=== PATIENT | female | born 1960 | race Hispanic/Latino ===

== ENCOUNTER 2021-10-02 21:56 | Inpatient (IN) | payer SELFPAY ==
[2021-10-02] MEDS ORDERED: Haloperidol Lactate 5 MG/ML VIAL ONE (22:19)
[2021-10-02] MEDS ORDERED: Ibuprofen 800 MG TAB ONE (22:48)
[2021-10-02 23:51] LABS: CKMB 2.3 ng/mL (0-6.6)
[2021-10-03] MEDS ORDERED: Acetaminophen 650 MG Suppository PR PRN (00:51)
[2021-10-03] MEDS ORDERED: Ondansetron PF 4 MG/2 ML Vial IVP PRN (00:51)
[2021-10-03] MEDS ORDERED: Ondansetron ODT 4 MG TAB PO PRN ×2 (00:51→01:46)
[2021-10-03] MEDS ORDERED: Acetaminophen 325 MG TAB PO PRN (00:51)
[2021-10-03] MEDS ORDERED: Metoprolol Tartrate 5 MG/5 ML VIAL IVP PRN (01:44)
[2021-10-03] MEDS ORDERED: Lorazepam 2 MG/ML VIAL IM PRN (01:46)
[2021-10-03] MEDS ORDERED: Lorazepam 1 MG TAB PO PRN (01:46)
[2021-10-03 01:57] LABS: Actual Bicarbonate (HCO3a) 9.7 mEq/L (22-28); Analyzer IN Cardio ER; Base Excess (BEa) -14.6 mEq/L (-2.0 to +3.0); CO2 Tension 20.1 mmHg (35.0-45.0); Calcium, Ionized (arterial) 0.99 mmol/L (1.12-1.30); Carboxyhemoglobin (COHb) 0.3 gm% (0.0-3.0); Hemoglobin (Hb) 12.1 g/dL (12.0-16.0); O2 Tension (PaO2), arterial 82.9 mmHg (> 80.0); Potassium - ABG Lab 3.13 mmol/L (3.70-5.30)
[2021-10-03 01:58] LABS: ALV-art Gradient 177.175 mmHg (0-20); Puncture Site RRA
[2021-10-03] MEDS ORDERED: Thiamine HCl 200 MG/2 ML VIAL SLOW IVP SCH (02:00)
[2021-10-03] MEDS ORDERED: Electrolyte Replacement Protocol 1 EACH FS PRN (02:00)
[2021-10-03] MEDS ORDERED: Sodium Chloride 0.9% 1,000 ML IV SCH (02:00)
[2021-10-03] MEDS ORDERED: Lorazepam 1 MG TAB PO SCH (02:00)
[2021-10-03] MEDS: Sodium Chloride 0.9% 1,000 ML IV SCH ×3 (02:11→02:38)
[2021-10-03 02:22] LABS: Lactic Acid 11.1 mmol/L (0.5-2.2)
[2021-10-03] MEDS: Doxycycline 100 MG in Sodium Chloride 0.9% 100 ML IVPB SCH ×2 (02:31→15:23)
[2021-10-03] MEDS ORDERED: Dexmedetomidine In 0.9 % NaCl 100 ML IVPB SCH (02:45)
[2021-10-03 02:49] LABS: Anion Gap 20 mmol/L (10-20); BUN (Urea Nitrogen) 31 mg/dL (9.8-20.1); Calc. Creatinine Clearance 0 mL/min (70-130); Calcium 7.2 mg/dL (7.8-10.44); Chloride 108 mmol/L (98-107); Magnesium 2.2 mg/dL (1.6-2.6); Phosphorus 3.7 mg/dL (2.3-4.7); Potassium 3.2 mmol/L (3.5-5.1); Sodium 134 mmol/L (136-145)
[2021-10-03 02:52] LABS: Band 46 % (5-11); Differential Comment Plasma-cytoid Cells; Hemoglobin 11.9 g/dL (12.0-16.0); Lymphocytes 6 % (21-51); MDiff Complete? YES; Mean Corpuscular HGB CONC 32.4 g/dL (32.0-36.0); Mean Corpuscular Hemoglobin 34.7 pg (27.0-31.0); Mean Platelet Volume 9.5 fL (7.4-10.4); Metamyelocyte 12 % (0-0); Monocytes 6 % (0-10); Myelocyte 5 % (0-0); Neutrophil 23 % (42-75); Platelet Count 54 thou/uL (130-400); Platelet Morphology Comment Appears Decreased; RBC Distribution Width 14.3 % (11.5-14.5); Red Blood Cell (RBC) Count 3.44 mill/uL (4.20-5.40); Reflex for Review?? YES; Toxic Granulation SLIGHT; Vacuoles SLIGHT; White Blood Cell (WBC) Count 20.8 thou/uL (4.8-10.8)
[2021-10-03 02:55] LABS: Carbon Dioxide 9 mmol/L (22-29); Glucose 44 mg/dL (70-105)
[2021-10-03] MEDS ORDERED: Dextrose 50% Abboject 50 ML SYRINGE IVP PRN (03:00)
[2021-10-03] MEDS ORDERED: Dextrose 5% in Water 1,000 ML IV PRN ×2 (03:00→03:02)
[2021-10-03] MEDS ORDERED: Dextrose 50% Abboject 50 ML SYRINGE SLOW IVP PRN (03:02)
[2021-10-03 03:39] LABS: Actual Bicarbonate (HCO3a) 9.1 mEq/L (22-28); Base Excess (BEa) -18.3 mEq/L (-2.0 to +3.0); CO2 Tension 26.7 mmHg (35.0-45.0); Calcium, Ionized (arterial) 1.02 mmol/L (1.12-1.30); Carboxyhemoglobin (COHb) 0.3 gm% (0.0-3.0); Hemoglobin (Hb) 11.5 g/dL (12.0-16.0); O2 Tension (PaO2), arterial 93.4 mmHg (> 80.0)
[2021-10-03 03:45] LABS: ALV-art Gradient 101.385 mmHg (0-20); Puncture Site LRA; pH, Arterial 7.15 (7.35-7.45)
[2021-10-03] MEDS ORDERED: Vancomycin 1.5 GRAM/300 ML BAG 1.5 GM in Premix Bag 1 BAG IVPB SCH (03:45)
[2021-10-03] MEDS ORDERED: Sodium Bicarb 50 MEQ/50 ML VIAL ONE (03:49)
[2021-10-03] MEDS ORDERED: Metoprolol Tartrate 5 MG/5 ML VIAL ONE (03:56)
[2021-10-03] MEDS ORDERED: Sodium Bicarb 50 MEQ/50 ML Abboject 8.4% SYRINGE IVP SCH (04:00)
[2021-10-03] MEDS: Potassium Chloride 20 MEQ in Premix Bag 1 BAG IVPB SCH ×2 (04:02→05:30)
[2021-10-03] MEDS ORDERED: Metoprolol Tartrate 5 MG/5 ML VIAL IVP SCH (04:15)
[2021-10-03] MEDS ORDERED: Succinylcholine 200 MG/10 ml SYRINGE FS ONE (04:15)
[2021-10-03] MEDS: Sodium Bicarbonate 100 MEQ in Dextrose 5% in Water 1,000 ML IV SCH ×2 (04:25→16:50)
[2021-10-03] MEDS: Meropenem 500 MG in Sodium Chloride 0.9% 100 ML IVPB SCH ×2 (04:26→17:22)
[2021-10-03] MEDS ORDERED: DISCONTINUE PREVIOUS NARCOTIC PAIN MEDICATIONS AND BENZODIAZEPINES FS SCH (04:30)
[2021-10-03] MEDS ORDERED: Morphine 4 MG/ML VIAL SLOW IVP PRN (04:30)
[2021-10-03] MEDS ORDERED: Fentanyl BOLUS 250 ML IVPB PRN (04:30)
[2021-10-03] MEDS ORDERED: Propofol BOLUS 1,000 MG/100 ML VIAL IV PRN (04:30)
[2021-10-03] MEDS: fentaNYL Citrate-0.9 % NaCl/PF 100 ML IV SCH (04:45)
[2021-10-03] MEDS: Propofol 1,000 MG/100 ML VIAL IV PRN ×3 (04:56→22:12)
[2021-10-03] MEDS ORDERED: Sodium Bicarbonate 150 MEQ in Dextrose 5% in Water 1,000 ML IV SCH (05:00)
[2021-10-03 05:22] LABS: Actual Bicarbonate (HCO3a) 10.2 mEq/L (22-28); Base Excess (BEa) -17.6 mEq/L (-2.0 to +3.0); Calcium, Ionized (arterial) 1.01 mmol/L (1.12-1.30); Carboxyhemoglobin (COHb) 0.5 gm% (0.0-3.0); Hemoglobin (Hb) 12.2 g/dL (12.0-16.0); O2 Tension (PaO2), arterial 76.7 mmHg (> 80.0)
[2021-10-03] MEDS ORDERED: Norepinephrine 8 MG/0.9% NS 250 ML ONE (05:22)
[2021-10-03 05:23] LABS: pH, Arterial 7.14 (7.35-7.45)
[2021-10-03 05:24] LABS: Puncture Site LBA
[2021-10-03] MEDS ORDERED: Meropenem 1 GM in Sodium Chloride 0.9% 100 ML IVPB SCH (06:00)
[2021-10-03 08:10] LABS: Actual Bicarbonate (HCO3a) 12.3 mEq/L (22-28); Base Excess (BEa) -12.4 mEq/L (-2.0 to +3.0); Calcium, Ionized (arterial) 0.97 mmol/L (1.12-1.30); Carboxyhemoglobin (COHb) 0.8 gm% (0.0-3.0); Hemoglobin (Hb) 11.9 g/dL (12.0-16.0); O2 Tension (PaO2), arterial 94.7 mmHg (> 80.0); Potassium - ABG Lab 3.77 mmol/L (3.70-5.30); pH, Arterial 7.31 (7.35-7.45)
[2021-10-03 08:11] LABS: CO2 Tension 25.2 mmHg (35.0-45.0); Puncture Site RRA
[2021-10-03 08:34] LABS: Prothrombin Time 50.2 sec (12.0-14.7)
[2021-10-03 08:35] LABS: PTT 66.1 sec (22.9-36.1)
[2021-10-03 08:39] LABS: INR-International Normal Ratio 5.3
[2021-10-03 08:53] LABS: HBSAg Index 0.23 S/CO (0-0.99); HIV (1/2) Antibody/Antigen Non-Reactive (NonReactive); HIV 1/2 INDEX 0.08 S/CO (<1.00); Hep A IgM AB Non-Reactive (NonReactive); Hep A IgM S/CO 0.33 S/CO (0-0.79); Hep B Surf Ag Non-Reactive S/CO (NonReactive); Hep C IgG Ab Non-Reactive (NonReactive); Hep C Index 0.09 S/CO (0-0.79)
[2021-10-03] MEDS ORDERED: Albumin 5% 0 ML ONE (08:55)
[2021-10-03] MEDS ORDERED: Multivit, Therapeutic 1 TAB PO SCH (09:00)
[2021-10-03] MEDS ORDERED: Albumin 25% 0 ML ONE (09:00)
[2021-10-03] MEDS ORDERED: VANCOMYCIN 1.25 GM/250 ML BAG IVPB SCH (09:00)
[2021-10-03] MEDS ORDERED: Folic Acid 1 MG TAB PO SCH (09:00)
[2021-10-03] MEDS ORDERED: Enoxaparin Sodium 30 MG/0.3 ML SYRINGE SC SCH (09:00)
[2021-10-03] MEDS ORDERED: Famotidine/PF 20 mg/2ml Vial SLOW IVP SCH (09:00)
[2021-10-03] MEDS ORDERED: Cefepime 2 GM in Sodium Chloride 0.9% 100 ML IVPB SCH (09:00)
[2021-10-03] MEDS ORDERED: Albumin 25% 100 ML ONE (09:01)
[2021-10-03] MEDS: Albumin 25% 25 GM/100 ML BOT IVPB SCH ×2 (09:07→17:31)
[2021-10-03 09:10] LABS: HBCM Index 0.83 S/CO (0-0.79); Hepatitis B Core IgM Abs Equivocal (NonReactive)
[2021-10-03 10:02] LABS: Amphetamine Not Detected (NotDetected); Barbiturates Screen Not Detected (NotDetected); Benzodiazepine Screen Not Detected (NotDetected); Cocaine Metabolite Screen Not Detected (NotDetected); Methadone Not Detected (NotDetected); Methamphetamine Not Detected (NotDetected); Opiate Screen Not Detected (NotDetected); Oxycodone Screen Not Detected (NotDetected); Phencyclidine (PCP) Not Detected (NotDetected); THC/Cannabinoid Screen Not Detected (NotDetected); Tricyclic Screen Not Detected (NotDetected)
[2021-10-03 11:04] LABS: Syphilis Antibody Nonreactive (Nonreactive); Syphilis Antibody Index 0.06 S/CO (<1.00 Non-Reactive)
[2021-10-03 11:33] LABS: Lactic Acid 9.2 mmol/L (0.5-2.2)
[2021-10-03 11:41] LABS: Bacteria/HPF 4+ HPF (None Seen); Bilirubin 2+ (Negative); Blood, Urine 3+ (Negative); Glucose, Urine (Dipstick) 30 mg/dL (Negative); Ketone, Urine Negative (Negative); Leukocyte 500 Leu/uL (Negative); Nitrite Negative (Negative); Protein, Urine (Dipstick) 100 mg/dL (Neg-Trace); RBC/HPF Greater than 50 HPF (0-3); Specific Gravity, Urine 1.013 (1.002-1.036); Urobilinogen Normal mg/dL (Less than 2); WBC/HPF Greater than 50 HPF (0-3); pH, Urine 5.5 (5.0-9.0)
[2021-10-03 11:57] LABS: Clarity Turbid (Clear); Squamous Epithelial 0-3 HPF (0-3)
[2021-10-03 12:00] LABS: Urine Culture Reflex Yes Yes
[2021-10-03] MEDS ORDERED: Phytonadione 10 MG in Sodium Chloride 0.9% 50 ML IVPB SCH (13:00)
[2021-10-03] MEDS: Octreotide Acetate 1,250 MCG in Sodium Chloride 0.9% 250 ML 250 ML IVPB SCH (13:28)
[2021-10-03] MEDS: Multivitamins, Adult 10 ML, Folic Acid 1 MG, Thiamine HCl 100 MG in Dextrose 5 %-0.45 %... IV SCH (15:32)
[2021-10-03] MEDS: Midodrine HCl 5 MG TAB PO SCH ×2 (15:32→21:12)
[2021-10-03] MEDS: Norepinephrine 8 MG/0.9% NS 250 ML IVPB SCH (16:02)
[2021-10-03 16:18] LABS: INR-International Normal Ratio 1.9
[2021-10-03 16:19] LABS: PTT 45.6 sec (22.9-36.1)
[2021-10-03 16:25] LABS: Anion Gap 22 mmol/L (10-20); BUN (Urea Nitrogen) 30 mg/dL (9.8-20.1); Calc. Creatinine Clearance 31 mL/min (70-130); Calcium 7.3 mg/dL (7.8-10.44); Carbon Dioxide 15 mmol/L (22-29); Chloride 102 mmol/L (98-107); Glucose 126 mg/dL (70-105); Potassium 3.9 mmol/L (3.5-5.1); Sodium 135 mmol/L (136-145)
[2021-10-03 16:34] LABS: Lactic Acid 7.7 mmol/L (0.5-2.2)
[2021-10-04] MEDS: fentaNYL Citrate-0.9 % NaCl/PF 100 ML IV SCH ×2 (00:03→20:20)
[2021-10-04] MEDS: Albumin 25% 25 GM/100 ML BOT IVPB SCH ×2 (00:06→05:26)
[2021-10-04] MEDS ORDERED: Lorazepam 1 MG TAB PO PRN (01:46)
[2021-10-04] MEDS: Doxycycline 100 MG in Sodium Chloride 0.9% 100 ML IVPB SCH ×2 (02:43→14:54)
[2021-10-04] MEDS: Sodium Bicarbonate 100 MEQ in Dextrose 5% in Water 1,000 ML IV SCH (04:20)
[2021-10-04] MEDS: Meropenem 500 MG in Sodium Chloride 0.9% 100 ML IVPB SCH ×2 (04:21→15:38)
[2021-10-04 04:39] LABS: Prothrombin Time 31.5 sec (12.0-14.7)
[2021-10-04 04:40] LABS: PTT 51.4 sec (22.9-36.1)
[2021-10-04] MEDS: Vancomycin HCl 500 MG in Sodium Chloride 0.9% 100 ML IVPB SCH (04:40)
[2021-10-04 04:57] LABS: ALT (SGPT) 43 U/L (8-55); AST (SGOT) 134 U/L (5-34); Albumin 3.1 g/dL (3.5-5.0); Alkaline Phosphatase 142 U/L (40-110); Anion Gap 17 mmol/L (10-20); BUN (Urea Nitrogen) 33 mg/dL (9.8-20.1); Bilirubin, Total 15.1 mg/dL (0.2-1.2); CK (CPK) 639 U/L (29-168); Calc. Creatinine Clearance 26 mL/min (70-130); Calcium 7.2 mg/dL (7.8-10.44); Carbon Dioxide 20 mmol/L (22-29); Chloride 98 mmol/L (98-107); Globulin 2.8 g/dL (2.4-3.5); Glucose 232 mg/dL (70-105); Potassium 3.4 mmol/L (3.5-5.1); Protein, Total 5.9 g/dL (6.0-8.3); Sodium 132 mmol/L (136-145)
[2021-10-04 05:26] LABS: Phosphorus 2.9 mg/dL (2.3-4.7)
[2021-10-04] MEDS: Propofol 1,000 MG/100 ML VIAL IV PRN (05:26)
[2021-10-04 05:56] LABS: Band 36 % (5-11); Hemoglobin 8.9 g/dL (12.0-16.0); Lymphocytes 6 % (21-51); MDiff Complete? YES; Mean Corpuscular HGB CONC 33.1 g/dL (32.0-36.0); Mean Corpuscular Hemoglobin 34.9 pg (27.0-31.0); Mean Platelet Volume 10.1 fL (7.4-10.4); Metamyelocyte 8 % (0-0); Monocytes 3 % (0-10); Myelocyte 3 % (0-0); Neutrophil 44 % (42-75); Platelet Count 34 thou/uL (130-400); Platelet Morphology Comment Appears Decreased; RBC Distribution Width 14.2 % (11.5-14.5); Red Blood Cell (RBC) Count 2.54 mill/uL (4.20-5.40)
[2021-10-04 07:28] LABS: Actual Bicarbonate (HCO3a) 21.2 mEq/L (22-28); Base Excess (BEa) -0.7 mEq/L (-2.0 to +3.0); Calcium, Ionized (arterial) 0.89 mmol/L (1.12-1.30); Carboxyhemoglobin (COHb) 0.5 gm% (0.0-3.0); Hemoglobin (Hb) 9.3 g/dL (12.0-16.0); Potassium - ABG Lab 3.14 mmol/L (3.70-5.30); pH, Arterial 7.53 (7.35-7.45)
[2021-10-04 07:29] LABS: ALV-art Gradient 265.325 mmHg (0-20); CO2 Tension 25.9 mmHg (35.0-45.0); O2 Tension (PaO2), arterial 58.8 mmHg (> 80.0); Puncture Site RRA
[2021-10-04] MEDS ORDERED: Heparin 10,000 UNITS/ 10 ML VIAL ONE (08:42)
[2021-10-04] MEDS: Midodrine HCl 5 MG TAB PO SCH ×3 (09:18→20:21)
[2021-10-04] MEDS: Pantoprazole 40 MG VIAL IVP SCH (09:18)
[2021-10-04] MEDS ORDERED: Sodium Bicarbonate 100 MEQ in Dextrose 5% in Water 1,000 ML IV SCH (09:50)
[2021-10-04] MEDS: Norepinephrine 8 MG/0.9% NS 250 ML IVPB SCH (11:10)
[2021-10-04] MEDS: Multivitamins, Adult 10 ML, Folic Acid 1 MG, Thiamine HCl 100 MG in Dextrose 5 %-0.45 %... IV SCH (15:37)
[2021-10-05] MEDS: Octreotide Acetate 1,250 MCG in Sodium Chloride 0.9% 250 ML 250 ML IVPB SCH (01:46)
[2021-10-05] MEDS ORDERED: Lorazepam 1 MG TAB PO PRN (01:46)
[2021-10-05] MEDS ORDERED: Lorazepam 0.5 MG TAB PO SCH (02:00)
[2021-10-05] MEDS: Doxycycline 100 MG in Sodium Chloride 0.9% 100 ML IVPB SCH ×2 (03:17→14:47)
[2021-10-05 03:56] LABS: Hemoglobin 9.6 g/dL (12.0-16.0); Mean Corpuscular HGB CONC 32.3 g/dL (32.0-36.0); Mean Corpuscular Hemoglobin 34.2 pg (27.0-31.0); Platelet Count 32 thou/uL (130-400); RBC Distribution Width 14.2 % (11.5-14.5); Red Blood Cell (RBC) Count 2.82 mill/uL (4.20-5.40)
[2021-10-05 03:57] LABS: Vancomycin, Trough 14.9 ug/mL
[2021-10-05 04:00] LABS: ALT (SGPT) 38 U/L (8-55); AST (SGOT) 126 U/L (5-34); Albumin 2.7 g/dL (3.5-5.0); Alkaline Phosphatase 151 U/L (40-110); Anion Gap 14 mmol/L (10-20); BUN (Urea Nitrogen) 26 mg/dL (9.8-20.1); Bilirubin, Total 15.4 mg/dL (0.2-1.2); Calc. Creatinine Clearance 26 mL/min (70-130); Calcium 7.2 mg/dL (7.8-10.44); Carbon Dioxide 24 mmol/L (22-29); Chloride 97 mmol/L (98-107); Globulin 2.8 g/dL (2.4-3.5); Glucose 86 mg/dL (70-105); Potassium 3.5 mmol/L (3.5-5.1); Protein, Total 5.5 g/dL (6.0-8.3); Sodium 131 mmol/L (136-145)
[2021-10-05 04:15] LABS: Band 34 % (5-11); Eosinophils 2 % (0-10); Lymphocytes 8 % (21-51); MDiff Complete? YES; Monocytes 3 % (0-10); Neutrophil 53 % (42-75); Platelet Morphology Comment Appears Decreased; Toxic Granulation SLIGHT; Vacuoles SLIGHT
[2021-10-05] MEDS: Norepinephrine 8 MG/0.9% NS 250 ML IVPB SCH (04:18)
[2021-10-05] MEDS: Meropenem 500 MG in Sodium Chloride 0.9% 100 ML IVPB SCH ×2 (04:19→15:59)
[2021-10-05] MEDS: Vancomycin HCl 500 MG in Sodium Chloride 0.9% 100 ML IVPB SCH (04:20)
[2021-10-05 07:45] LABS: Actual Bicarbonate (HCO3a) 25.2 mEq/L (22-28); Base Excess (BEa) 3.7 mEq/L (-2.0 to +3.0); CO2 Tension 27.6 mmHg (35.0-45.0); Calcium, Ionized (arterial) 0.93 mmol/L (1.12-1.30); Carboxyhemoglobin (COHb) 1.2 gm% (0.0-3.0); Hemoglobin (Hb) 9.9 g/dL (12.0-16.0); Potassium - ABG Lab 3.31 mmol/L (3.70-5.30)
[2021-10-05 07:48] LABS: pH, Arterial 7.58 (7.35-7.45)
[2021-10-05 07:49] LABS: O2 Tension (PaO2), arterial 49.9 mmHg (> 80.0); Puncture Site RRA
[2021-10-05] MEDS: Lorazepam 2 MG/ML VIAL SLOW IVP PRN ×2 (08:40→09:40)
[2021-10-05] MEDS: Pantoprazole 40 MG VIAL IVP SCH (09:10)
[2021-10-05] MEDS: Midodrine HCl 5 MG TAB PO SCH ×3 (09:10→20:39)
[2021-10-05] MEDS: Propofol 1,000 MG/100 ML VIAL IV PRN (11:09)
[2021-10-05] MEDS ORDERED: Vecuronium 10 MG VIAL IVP SCH (12:30)
[2021-10-05] MEDS: fentaNYL Citrate-0.9 % NaCl/PF 100 ML IV SCH (12:36)
[2021-10-05] MEDS: Multivitamins, Adult 10 ML, Folic Acid 1 MG, Thiamine HCl 100 MG in Dextrose 5 %-0.45 %... IV SCH (12:47)
[2021-10-06] MEDS: fentaNYL Citrate-0.9 % NaCl/PF 100 ML IV SCH ×2 (00:26→12:46)
[2021-10-06] MEDS ORDERED: Lorazepam 0.5 MG TAB PO PRN (01:46)
[2021-10-06] MEDS: Thiamine 100 MG TAB PO SCH (02:33)
[2021-10-06] MEDS: Doxycycline 100 MG in Sodium Chloride 0.9% 100 ML IVPB SCH ×2 (03:22→15:48)
[2021-10-06] MEDS: Octreotide Acetate 1,250 MCG in Sodium Chloride 0.9% 250 ML 250 ML IVPB SCH (03:23)
[2021-10-06] MEDS: Vancomycin HCl 500 MG in Sodium Chloride 0.9% 100 ML IVPB SCH (04:26)
[2021-10-06] MEDS: Meropenem 500 MG in Sodium Chloride 0.9% 100 ML IVPB SCH ×2 (04:27→16:08)
[2021-10-06 04:45] LABS: INR-International Normal Ratio 3.4; Prothrombin Time 35.3 sec (12.0-14.7)
[2021-10-06 04:46] LABS: PTT 58.5 sec (22.9-36.1)
[2021-10-06 05:05] LABS: Albumin 2.5 g/dL (3.5-5.0); Anion Gap 12 mmol/L (10-20); BUN (Urea Nitrogen) 35 mg/dL (9.8-20.1); Bilirubin, Total 17.7 mg/dL (0.2-1.2); Calc. Creatinine Clearance 18 mL/min (70-130); Calcium 7.2 mg/dL (7.8-10.44); Carbon Dioxide 24 mmol/L (22-29); Chloride 97 mmol/L (98-107); Glucose 110 mg/dL (70-105); Potassium 4.5 mmol/L (3.5-5.1); Protein, Total 5.4 g/dL (6.0-8.3); Sodium 128 mmol/L (136-145)
[2021-10-06 05:06] LABS: ALT (SGPT) 35 U/L (8-55); AST (SGOT) 102 U/L (5-34); Alkaline Phosphatase 168 U/L (40-110); Globulin 2.9 g/dL (2.4-3.5)
[2021-10-06 05:07] LABS: Band 11 % (5-11); Eosinophils 3 % (0-10); Hemoglobin 9.8 g/dL (12.0-16.0); Lymphocytes 4 % (21-51); MDiff Complete? YES; Macrocytosis MODERATE=16-30 cells (100X) (0-5/hpf); Mean Corpuscular HGB CONC 31.4 g/dL (32.0-36.0); Mean Corpuscular Hemoglobin 34.2 pg (27.0-31.0); Mean Platelet Volume 11.4 fL (7.4-10.4); Metamyelocyte 1 % (0-0); Monocytes 7 % (0-10); Neutrophil 74 % (42-75); Platelet Count 26 thou/uL (130-400); Platelet Morphology Comment Appears Decreased; RBC Distribution Width 14.5 % (11.5-14.5); Red Blood Cell (RBC) Count 2.85 mill/uL (4.20-5.40); Toxic Granulation SLIGHT; White Blood Cell (WBC) Count 20.6 thou/uL (4.8-10.8)
[2021-10-06 06:59] LABS: Actual Bicarbonate (HCO3a) 24.1 mEq/L (22-28); Base Excess (BEa) -2.4 mEq/L (-2.0 to +3.0); CO2 Tension 49.2 mmHg (35.0-45.0); Carboxyhemoglobin (COHb) 0.5 gm% (0.0-3.0); Hemoglobin (Hb) 10.9 g/dL (12.0-16.0); O2 Tension (PaO2), arterial 71.1 mmHg (> 80.0); Potassium - ABG Lab 4.42 mmol/L (3.70-5.30); pH, Arterial 7.31 (7.35-7.45)
[2021-10-06 07:00] LABS: Puncture Site RRA
[2021-10-06] MEDS ORDERED: Albumin 25% 25 GM/100 ML BOT IVPB SCH (07:00)
[2021-10-06] MEDS: Pantoprazole 40 MG VIAL IVP SCH (12:51)
[2021-10-06] MEDS: Multivit, Therapeutic 1 TAB PO SCH (12:52)
[2021-10-06] MEDS: Folic Acid 1 MG TAB PO SCH (12:53)
[2021-10-06] MEDS: Midodrine HCl 5 MG TAB PO SCH ×3 (12:59→20:42)
[2021-10-06 16:28] LABS: ANA Symphony (Qualitative) Negative (Negative); ANA Symphony (Quantitative) 0.3 Ratio (< 0.7 Negative); EliA Vaculitis New Method **** NEW METHOD ****; dsDNA IgG Antibody 1.5 IU/mL (<10 Negative)
[2021-10-06 17:10] LABS: Smooth Muscle Total ABS 6 Units (0-19)
[2021-10-06] MEDS: Dextrose 10% in Water 1,000 ML IV SCH (18:17)
[2021-10-06 22:12] LABS: HBV as IU/mL HBV DNA not detected IU/mL (.)
[2021-10-07] MEDS: Doxycycline 100 MG in Sodium Chloride 0.9% 100 ML IVPB SCH ×2 (02:51→15:01)
[2021-10-07] MEDS: Thiamine 100 MG TAB PO SCH (02:51)
[2021-10-07] MEDS: Lorazepam 2 MG/ML VIAL SLOW IVP PRN ×3 (03:50→16:07)
[2021-10-07] MEDS: Meropenem 500 MG in Sodium Chloride 0.9% 100 ML IVPB SCH ×2 (04:16→16:07)
[2021-10-07 04:27] LABS: INR-International Normal Ratio 3.6; Prothrombin Time 36.4 sec (12.0-14.7)
[2021-10-07 04:28] LABS: PTT 61.3 sec (22.9-36.1)
[2021-10-07 04:40] LABS: Band 26 % (5-11); Hemoglobin 9.7 g/dL (12.0-16.0); Hypochromia SLIGHT = 6-15 cells (100X) (0-5/hpf); Lymphocytes 7 % (21-51); MDiff Complete? YES; Macrocytosis SLIGHT = 6-15 cells (100X) (0-5/hpf); Mean Corpuscular HGB CONC 31.8 g/dL (32.0-36.0); Mean Corpuscular Hemoglobin 34.3 pg (27.0-31.0); Mean Platelet Volume 10.3 fL (7.4-10.4); Monocytes 7 % (0-10); Neutrophil 60 % (42-75); Platelet Count 55 thou/uL (130-400); Platelet Morphology Comment Appears Decreased; RBC Distribution Width 14.6 % (11.5-14.5); Red Blood Cell (RBC) Count 2.82 mill/uL (4.20-5.40); White Blood Cell (WBC) Count 14.4 thou/uL (4.8-10.8)
[2021-10-07 04:52] LABS: ALT (SGPT) 31 U/L (8-55); AST (SGOT) 98 U/L (5-34); Albumin 2.6 g/dL (3.5-5.0); Alkaline Phosphatase 152 U/L (40-110); Anion Gap 15 mmol/L (10-20); BUN (Urea Nitrogen) 38 mg/dL (9.8-20.1); Bilirubin, Total 18.2 mg/dL (0.2-1.2); Calc. Creatinine Clearance 18 mL/min (70-130); Calcium 7.4 mg/dL (7.8-10.44); Carbon Dioxide 23 mmol/L (22-29); Chloride 101 mmol/L (98-107); Glucose 108 mg/dL (70-105); Potassium 4.8 mmol/L (3.5-5.1); Protein, Total 5.6 g/dL (6.0-8.3); Sodium 134 mmol/L (136-145)
[2021-10-07] MEDS: fentaNYL Citrate-0.9 % NaCl/PF 100 ML IV SCH ×2 (06:17→23:11)
[2021-10-07] MEDS: Octreotide Acetate 1,250 MCG in Sodium Chloride 0.9% 250 ML 250 ML IVPB SCH (06:17)
[2021-10-07 07:06] LABS: Actual Bicarbonate (HCO3a) 25.5 mEq/L (22-28); Base Excess (BEa) -0.3 mEq/L (-2.0 to +3.0); Calcium, Ionized (arterial) 1.02 mmol/L (1.12-1.30); Carboxyhemoglobin (COHb) 1.6 gm% (0.0-3.0); Hemoglobin (Hb) 10.5 g/dL (12.0-16.0); O2 Tension (PaO2), arterial 81.1 mmHg (> 80.0); Potassium - ABG Lab 4.03 mmol/L (3.70-5.30); pH, Arterial 7.35 (7.35-7.45)
[2021-10-07] MEDS ORDERED: Acetaminophen 325 MG TAB PO PRN (07:37)
[2021-10-07] MEDS ORDERED: Acetaminophen 650 MG Suppository PR PRN (07:38)
[2021-10-07 08:10] LABS: Puncture Site RRA
[2021-10-07] MEDS: Pantoprazole 40 MG VIAL IVP SCH (09:04)
[2021-10-07] MEDS: Midodrine HCl 5 MG TAB PO SCH ×3 (09:05→21:03)
[2021-10-07] MEDS: Multivit, Therapeutic 1 TAB PO SCH (09:05)
[2021-10-07] MEDS: Folic Acid 1 MG TAB PO SCH (09:05)
[2021-10-07] MEDS: Hydrocortisone Sod Succ/PF 100 mg/2 ml Vial IVP SCH ×3 (12:17→23:15)
[2021-10-07] MEDS ORDERED: Vecuronium 10 MG VIAL ONE (14:06)
[2021-10-07] MEDS ORDERED: Heparin 10,000 UNITS/ 10 ML VIAL ONE (14:11)
[2021-10-07] MEDS ORDERED: Vecuronium 10 MG VIAL IV PRN (14:12)
[2021-10-07] MEDS ORDERED: Metoclopramide HCl 10 MG/2 ML VIAL IVP SCH ×4 (14:45→21:00)
[2021-10-07] MEDS: Dextrose 10% in Water 1,000 ML IV SCH (17:27)
[2021-10-07] MEDS: Metoclopramide HCl 10 MG/2 ML VIAL IVP SCH (21:00)
[2021-10-08] MEDS: Thiamine 100 MG TAB PO SCH (02:24)
[2021-10-08] MEDS: Doxycycline 100 MG in Sodium Chloride 0.9% 100 ML IVPB SCH ×2 (02:24→15:06)
[2021-10-08] MEDS: Metoclopramide HCl 10 MG/2 ML VIAL IVP SCH ×4 (02:31→21:07)
[2021-10-08] MEDS: Meropenem 500 MG in Sodium Chloride 0.9% 100 ML IVPB SCH ×2 (04:56→15:59)
[2021-10-08] MEDS: Hydrocortisone Sod Succ/PF 100 mg/2 ml Vial IVP SCH ×4 (04:56→23:57)
[2021-10-08 05:30] LABS: Band 6 % (5-11); Hemoglobin 10.1 g/dL (12.0-16.0); Lymphocytes 6 % (21-51); MDiff Complete? YES; Macrocytosis MODERATE=16-30 cells (100X) (0-5/hpf); Mean Corpuscular HGB CONC 31.9 g/dL (32.0-36.0); Mean Corpuscular Hemoglobin 34.2 pg (27.0-31.0); Mean Platelet Volume 11.8 fL (7.4-10.4); Monocytes 14 % (0-10); Neutrophil 74 % (42-75); Platelet Count 37 thou/uL (130-400); Platelet Morphology Comment Appears Decreased; RBC Distribution Width 14.8 % (11.5-14.5); Red Blood Cell (RBC) Count 2.94 mill/uL (4.20-5.40); White Blood Cell (WBC) Count 10.5 thou/uL (4.8-10.8)
[2021-10-08 05:37] LABS: ALT (SGPT) 29 U/L (8-55); AST (SGOT) 94 U/L (5-34); Albumin 2.3 g/dL (3.5-5.0); Alkaline Phosphatase 160 U/L (40-110); Anion Gap 14 mmol/L (10-20); BUN (Urea Nitrogen) 34 mg/dL (9.8-20.1); Calc. Creatinine Clearance 21 mL/min (70-130); Carbon Dioxide 27 mmol/L (22-29); Chloride 99 mmol/L (98-107); Globulin 3.4 g/dL (2.4-3.5); Glucose 108 mg/dL (70-105); Potassium 4.7 mmol/L (3.5-5.1); Protein, Total 5.7 g/dL (6.0-8.3); Sodium 135 mmol/L (136-145)
[2021-10-08 06:09] LABS: INR-International Normal Ratio 3.8; Prothrombin Time 38.6 sec (12.0-14.7)
[2021-10-08 06:11] LABS: PTT 66.2 sec (22.9-36.1)
[2021-10-08 07:02] LABS: Actual Bicarbonate (HCO3a) 22.2 mEq/L (22-28); Base Excess (BEa) -2.4 mEq/L (-2.0 to +3.0); CO2 Tension 37.5 mmHg (35.0-45.0); Calcium, Ionized (arterial) 1.05 mmol/L (1.12-1.30); Carboxyhemoglobin (COHb) 1.2 gm% (0.0-3.0); Hemoglobin (Hb) 12.4 g/dL (12.0-16.0); O2 Tension (PaO2), arterial 65.4 mmHg (> 80.0); Potassium - ABG Lab 4.13 mmol/L (3.70-5.30); pH, Arterial 7.39 (7.35-7.45)
[2021-10-08 07:06] LABS: ALV-art Gradient 172.925 mmHg (0-20); Puncture Site RRA
[2021-10-08] MEDS: Octreotide Acetate 1,250 MCG in Sodium Chloride 0.9% 250 ML 250 ML IVPB SCH (07:34)
[2021-10-08] MEDS: Pantoprazole 40 MG VIAL IVP SCH (09:53)
[2021-10-08] MEDS: Midodrine HCl 5 MG TAB PO SCH ×3 (09:53→21:08)
[2021-10-08] MEDS: Folic Acid 1 MG TAB PO SCH (09:53)
[2021-10-08] MEDS: Multivit, Therapeutic 1 TAB PO SCH (09:53)
[2021-10-08] MEDS ORDERED: Albumin 25% 100 ML ONE (13:52)
[2021-10-08] MEDS ORDERED: Heparin 10,000 UNITS/ 10 ML VIAL ONE (14:08)
[2021-10-08] MEDS: fentaNYL Citrate-0.9 % NaCl/PF 100 ML IV SCH (16:24)
[2021-10-09] MEDS: Thiamine 100 MG TAB PO SCH (03:00)
[2021-10-09] MEDS: Doxycycline 100 MG in Sodium Chloride 0.9% 100 ML IVPB SCH (03:01)
[2021-10-09] MEDS: Metoclopramide HCl 10 MG/2 ML VIAL IVP SCH ×2 (03:02→09:54)
[2021-10-09] MEDS: Meropenem 500 MG in Sodium Chloride 0.9% 100 ML IVPB SCH (03:15)
[2021-10-09 04:08] LABS: Hemoglobin 9.8 g/dL (12.0-16.0); Mean Corpuscular HGB CONC 31.8 g/dL (32.0-36.0); Mean Corpuscular Hemoglobin 34.3 pg (27.0-31.0); Mean Platelet Volume 10.8 fL (7.4-10.4); Platelet Count 24 thou/uL (130-400); RBC Distribution Width 14.6 % (11.5-14.5); Red Blood Cell (RBC) Count 2.87 mill/uL (4.20-5.40); White Blood Cell (WBC) Count 8.8 thou/uL (4.8-10.8)
[2021-10-09 04:19] LABS: Prothrombin Time 76.8 sec (12.0-14.7)
[2021-10-09 04:33] LABS: PTT 164.1 sec (22.9-36.1)
[2021-10-09 04:34] LABS: INR-International Normal Ratio 9.1
[2021-10-09 04:37] LABS: ALT (SGPT) 23 U/L (8-55); AST (SGOT) 63 U/L (5-34); Albumin 2.4 g/dL (3.5-5.0); Alkaline Phosphatase 149 U/L (40-110); Anion Gap 16 mmol/L (10-20); BUN (Urea Nitrogen) 53 mg/dL (9.8-20.1); Bilirubin, Total 17.9 mg/dL (0.2-1.2); Calc. Creatinine Clearance 18 mL/min (70-130); Calcium 7.7 mg/dL (7.8-10.44); Carbon Dioxide 24 mmol/L (22-29); Chloride 100 mmol/L (98-107); Glucose 126 mg/dL (70-105); Potassium 4.7 mmol/L (3.5-5.1); Protein, Total 5.4 g/dL (6.0-8.3); Sodium 135 mmol/L (136-145)
[2021-10-09 04:38] LABS: Band 26 % (5-11); Hypochromia SLIGHT = 6-15 cells (100X) (0-5/hpf); Lymphocytes 5 % (21-51); MDiff Complete? YES; Macrocytosis SLIGHT = 6-15 cells (100X) (0-5/hpf); Monocytes 5 % (0-10); Neutrophil 63 % (42-75); Platelet Morphology Comment Appears Adequate; Reactive Lymphocytes 1 % (0-10)
[2021-10-09 05:34] LABS: Prothrombin Time 43.9 sec (12.0-14.7)
[2021-10-09 05:35] LABS: PTT 70.1 sec (22.9-36.1)
[2021-10-09 05:39] LABS: Fibrinogen 146 mg/dL (253-463)
[2021-10-09] MEDS: Hydrocortisone Sod Succ/PF 100 mg/2 ml Vial IVP SCH ×3 (05:43→18:33)
[2021-10-09] MEDS: Octreotide Acetate 1,250 MCG in Sodium Chloride 0.9% 250 ML 250 ML IVPB SCH (05:50)
[2021-10-09 05:56] LABS: INR-International Normal Ratio 4.5
[2021-10-09 06:44] LABS: Actual Bicarbonate (HCO3a) 24.9 mEq/L (22-28); Base Excess (BEa) 0.4 mEq/L (-2.0 to +3.0); CO2 Tension 39.5 mmHg (35.0-45.0); Calcium, Ionized (arterial) 1.05 mmol/L (1.12-1.30); Hemoglobin (Hb) 10.4 g/dL (12.0-16.0); O2 Tension (PaO2), arterial 65.8 mmHg (> 80.0); Potassium - ABG Lab 4.63 mmol/L (3.70-5.30); pH, Arterial 7.42 (7.35-7.45)
[2021-10-09] MEDS: Multivit, Therapeutic 1 TAB PO SCH (09:54)
[2021-10-09] MEDS: Folic Acid 1 MG TAB PO SCH (09:54)
[2021-10-09] MEDS: Pantoprazole 40 MG VIAL IVP SCH (09:54)
[2021-10-09] MEDS: Midodrine HCl 5 MG TAB PO SCH ×3 (09:57→21:12)
[2021-10-09] MEDS: cefTRIAXone\\ROCEPHIN 2 GM in Sodium Chloride 0.9% 100 ML IVPB SCH (09:57)
[2021-10-09 10:23] LABS: Puncture Site RRA
[2021-10-09 10:24] LABS: ALV-art Gradient 170.025 mmHg (0-20)
[2021-10-09] MEDS: Phytonadione 10 MG in Sodium Chloride 0.9% 50 ML IVPB SCH (12:54)
[2021-10-09] MEDS: fentaNYL Citrate-0.9 % NaCl/PF 100 ML IV SCH (14:03)
[2021-10-09] MEDS: Norepinephrine 8 MG/0.9% NS 250 ML IVPB SCH (18:34)
[2021-10-10] MEDS: Hydrocortisone Sod Succ/PF 100 mg/2 ml Vial IVP SCH ×4 (00:36→17:14)
[2021-10-10] MEDS: Thiamine 100 MG TAB PO SCH (01:58)
[2021-10-10 05:30] LABS: ALT (SGPT) 28 U/L (8-55); AST (SGOT) 81 U/L (5-34); Albumin 2.3 g/dL (3.5-5.0); Alkaline Phosphatase 150 U/L (40-110); Anion Gap 17 mmol/L (10-20); BUN (Urea Nitrogen) 81 mg/dL (9.8-20.1); Bilirubin, Total 17.2 mg/dL (0.2-1.2); Calc. Creatinine Clearance 14 mL/min (70-130); Calcium 7.7 mg/dL (7.8-10.44); Carbon Dioxide 22 mmol/L (22-29); Chloride 101 mmol/L (98-107); Globulin 3.3 g/dL (2.4-3.5); Glucose 108 mg/dL (70-105); Potassium 5.7 mmol/L (3.5-5.1); Protein, Total 5.6 g/dL (6.0-8.3); Sodium 134 mmol/L (136-145)
[2021-10-10 05:37] LABS: Anisocytosis SLIGHT = 6-15 cells (100X) (0-5/hpf); Band 15 % (5-11); Basophilic Stippling SLIGHT = 1-2 cells (100X) (None Seen); Burr Cells SLIGHT = 2-5 cells (100X) (0-1/hpf); Critical Call w/ Read Back ICU.UKA; Hemoglobin 9.9 g/dL (12.0-16.0); Lymphocytes 14 % (21-51); MDiff Complete? YES; Macrocytosis MODERATE=16-30 cells (100X) (0-5/hpf); Mean Corpuscular Hemoglobin 34.7 pg (27.0-31.0); Mean Platelet Volume 11.5 fL (7.4-10.4); Metamyelocyte 1 % (0-0); Monocytes 2 % (0-10); Myelocyte 1 % (0-0); Neutrophil 67 % (42-75); Nucleated RBC 1 % (0); Platelet Count 29 thou/uL (130-400); Platelet Morphology Comment Appears Decreased; RBC Distribution Width 15.2 % (11.5-14.5); Red Blood Cell (RBC) Count 2.86 mill/uL (4.20-5.40); White Blood Cell (WBC) Count 11.9 thou/uL (4.8-10.8)
[2021-10-10 07:55] LABS: Actual Bicarbonate (HCO3a) 19.9 mEq/L (22-28); Base Excess (BEa) -4.7 mEq/L (-2.0 to +3.0); CO2 Tension 35.1 mmHg (35.0-45.0); Calcium, Ionized (arterial) 1.05 mmol/L (1.12-1.30); Hemoglobin (Hb) 10.6 g/dL (12.0-16.0); O2 Tension (PaO2), arterial 69.3 mmHg (> 80.0); Potassium - ABG Lab 5.06 mmol/L (3.70-5.30); pH, Arterial 7.37 (7.35-7.45)
[2021-10-10 07:58] LABS: ALV-art Gradient 172.025 mmHg (0-20); Puncture Site RRA
[2021-10-10] MEDS ORDERED: Heparin 10,000 UNITS/ 10 ML VIAL ONE (08:49)
[2021-10-10] MEDS: cefTRIAXone\\ROCEPHIN 2 GM in Sodium Chloride 0.9% 100 ML IVPB SCH (10:19)
[2021-10-10] MEDS: Folic Acid 1 MG TAB PO SCH (10:31)
[2021-10-10] MEDS: Pantoprazole 40 MG VIAL IVP SCH (10:31)
[2021-10-10] MEDS: Octreotide Acetate 1,250 MCG in Sodium Chloride 0.9% 250 ML 250 ML IVPB SCH (10:31)
[2021-10-10] MEDS: Midodrine HCl 5 MG TAB PO SCH ×3 (10:31→20:51)
[2021-10-10] MEDS: Multivit, Therapeutic 1 TAB PO SCH (10:31)
[2021-10-10] MEDS: Phytonadione 10 MG in Sodium Chloride 0.9% 50 ML IVPB SCH (14:15)
[2021-10-11] MEDS: Hydrocortisone Sod Succ/PF 100 mg/2 ml Vial IVP SCH ×4 (00:02→19:42)
[2021-10-11] MEDS: Lorazepam 2 MG/ML VIAL SLOW IVP PRN ×2 (00:48→06:00)
[2021-10-11] MEDS: Thiamine 100 MG TAB PO SCH (02:50)
[2021-10-11 04:31] LABS: PTT 59.7 sec (22.9-36.1); Platelet Count 26 thou/uL (130-400); Prothrombin Time 43.5 sec (12.0-14.7)
[2021-10-11 04:35] LABS: INR-International Normal Ratio 4.5
[2021-10-11 04:56] LABS: Band 27 % (5-11); Hypochromia SLIGHT = 6-15 cells (100X) (0-5/hpf); Lymphocytes 14 % (21-51); MDiff Complete? YES; Macrocytosis SLIGHT = 6-15 cells (100X) (0-5/hpf); Mean Corpuscular HGB CONC 31.5 g/dL (32.0-36.0); Mean Corpuscular Hemoglobin 33.1 pg (27.0-31.0); Mean Platelet Volume 10.9 fL (7.4-10.4); Monocytes 9 % (0-10); Neutrophil 50 % (42-75); Platelet Morphology Comment Appears Decreased; RBC Distribution Width 15.1 % (11.5-14.5); Red Blood Cell (RBC) Count 3.01 mill/uL (4.20-5.40); White Blood Cell (WBC) Count 15.8 thou/uL (4.8-10.8)
[2021-10-11 04:58] LABS: ALT (SGPT) 27 U/L (8-55); AST (SGOT) 80 U/L (5-34); Albumin 2.3 g/dL (3.5-5.0); Alkaline Phosphatase 153 U/L (40-110); Anion Gap 17 mmol/L (10-20); BUN (Urea Nitrogen) 69 mg/dL (9.8-20.1); Bilirubin, Total 17.7 mg/dL (0.2-1.2); Calc. Creatinine Clearance 17 mL/min (70-130); Calcium 8.7 mg/dL (7.8-10.44); Carbon Dioxide 22 mmol/L (22-29); Chloride 99 mmol/L (98-107); Globulin 3.1 g/dL (2.4-3.5); Glucose 108 mg/dL (70-105); Potassium 4.6 mmol/L (3.5-5.1); Protein, Total 5.4 g/dL (6.0-8.3); Sodium 133 mmol/L (136-145)
[2021-10-11 07:17] LABS: Actual Bicarbonate (HCO3a) 19.9 mEq/L (22-28); Base Excess (BEa) -3.9 mEq/L (-2.0 to +3.0); CO2 Tension 31.5 mmHg (35.0-45.0); Calcium, Ionized (arterial) 1.11 mmol/L (1.12-1.30); Carboxyhemoglobin (COHb) 1.3 gm% (0.0-3.0); Hemoglobin (Hb) 9.9 g/dL (12.0-16.0); pH, Arterial 7.42 (7.35-7.45)
[2021-10-11 07:33] LABS: ALV-art Gradient 171.825 mmHg (0-20); Puncture Site RRA
[2021-10-11] MEDS: Folic Acid 1 MG TAB PO SCH (10:49)
[2021-10-11] MEDS: Pantoprazole 40 MG VIAL IVP SCH (10:49)
[2021-10-11] MEDS: Multivit, Therapeutic 1 TAB PO SCH (10:49)
[2021-10-11] MEDS: cefTRIAXone\\ROCEPHIN 2 GM in Sodium Chloride 0.9% 100 ML IVPB SCH (10:51)
[2021-10-11] MEDS: Midodrine HCl 5 MG TAB PO SCH ×3 (10:57→19:43)
[2021-10-11 14:52] VITALS: BMI 34.7
[2021-10-12] MEDS: Thiamine 100 MG TAB PO SCH (00:45)
[2021-10-12] MEDS: Hydrocortisone Sod Succ/PF 100 mg/2 ml Vial IVP SCH ×2 (00:45→05:49)
[2021-10-12 03:49] LABS: INR-International Normal Ratio 3.7; PTT 59.1 sec (22.9-36.1); Prothrombin Time 37.9 sec (12.0-14.7)
[2021-10-12 03:59] LABS: #Basophils 0.2 thou/uL (0.0-0.2); #Eosinphils 0.1 thou/uL (0.0-0.7); #Lymphocytes 0.6 thou/uL (1.20-3.40); #Monocytes 0.9 thou/uL (0.11-0.59); #Neutrophils 11.2 thou/uL (1.40-6.50); %Basophils 1.2 % (0.0-1.0); %Eosinophils 0.4 % (0.0-10.0); %Lymphocytes 4.9 % (21.0-51.0); %Monocytes 7.2 % (0.0-10.0); %Neutrophils 86.3 % (42.0-75.0); Anisocytosis SLIGHT = 6-15 cells (100X) (0-5/hpf); Basophilic Stippling SLIGHT = 1-2 cells (100X) (None Seen); Burr Cells SLIGHT = 2-5 cells (100X) (0-1/hpf); Hemoglobin 9.8 g/dL (12.0-16.0); MDiff Complete? YES; Macrocytosis MODERATE=16-30 cells (100X) (0-5/hpf); Mean Corpuscular HGB CONC 32.8 g/dL (32.0-36.0); Mean Corpuscular Hemoglobin 35.1 pg (27.0-31.0); Mean Platelet Volume 11.6 fL (7.4-10.4); Platelet Count 21 thou/uL (130-400); Platelet Morphology Comment Appears Decreased; RBC Distribution Width 14.9 % (11.5-14.5); White Blood Cell (WBC) Count 12.9 thou/uL (4.8-10.8)
[2021-10-12 04:03] LABS: ALT (SGPT) 31 U/L (8-55); AST (SGOT) 84 U/L (5-34); Albumin 2.4 g/dL (3.5-5.0); Alkaline Phosphatase 163 U/L (40-110); Anion Gap 18 mmol/L (10-20); BUN (Urea Nitrogen) 96 mg/dL (9.8-20.1); Bilirubin, Total 18.8 mg/dL (0.2-1.2); Calc. Creatinine Clearance 14 mL/min (70-130); Carbon Dioxide 23 mmol/L (22-29); Chloride 99 mmol/L (98-107); Globulin 3.4 g/dL (2.4-3.5); Glucose 113 mg/dL (70-105); Potassium 4.7 mmol/L (3.5-5.1); Protein, Total 5.8 g/dL (6.0-8.3); Sodium 135 mmol/L (136-145)
[2021-10-12 07:01] LABS: Actual Bicarbonate (HCO3a) 21.9 mEq/L (22-28); Base Excess (BEa) -1.7 mEq/L (-2.0 to +3.0); CO2 Tension 32.4 mmHg (35.0-45.0); Calcium, Ionized (arterial) 1.11 mmol/L (1.12-1.30); Carboxyhemoglobin (COHb) 1.2 gm% (0.0-3.0); O2 Tension (PaO2), arterial 106.8 mmHg (> 80.0); Potassium - ABG Lab 4.56 mmol/L (3.70-5.30); pH, Arterial 7.45 (7.35-7.45)
[2021-10-12 07:03] LABS: Puncture Site RRA
[2021-10-12 10:18] VITALS: BP 167/70
[2021-10-12] MEDS: Pantoprazole 40 MG VIAL IVP SCH (10:48)
[2021-10-12] MEDS: Midodrine HCl 5 MG TAB PO SCH (10:50)
[2021-10-12] MEDS: Folic Acid 1 MG TAB PO SCH (10:50)
[2021-10-12] MEDS: Multivit, Therapeutic 1 TAB PO SCH (10:50)
[2021-10-12 12:30] VITALS: TEMP 98.1
== END 2021-10-12 16:02 | disposition hospice, inpatient (51) | DRG 870 ==
LOC: ERS 21:56 → IMCU/EMU 10-03 00:51 → CCU 10-03 03:07
PROVIDERS: ADMIT Emergency Medicine; ATTEND Emergency Medicine
PROC: 5A1955Z Respiratory Ventilation, Greater than 96 Consecutive Hours (ICD-10-PCS; principal; 2021-10-03)
PROC: 30233K1 Transfusion of Nonautologous Frozen Plasma into Peripheral Vein, Percutaneous Approach (ICD-10-PCS; 2021-10-03)
PROC: 0BH17EZ Insertion of Endotracheal Airway into Trachea, Via Natural or Artificial Opening (ICD-10-PCS; 2021-10-03)
PROC: 3E033XZ Introduction of Vasopressor into Peripheral Vein, Percutaneous Approach (ICD-10-PCS; 2021-10-03)
PROC: 3E03329 Introduction of Other Anti-infective into Peripheral Vein, Percutaneous Approach (ICD-10-PCS; 2021-10-03)
PROC: 5A09357 Assistance with Respiratory Ventilation, Less than 24 Consecutive Hours, Continuous Positive Airway Pressure (ICD-10-PCS; 2021-10-03)
PROC: 8E0ZXY6 Isolation (ICD-10-PCS; 2021-10-03)
PROC: 5A1D70Z Performance of Urinary Filtration, Intermittent, Less than 6 Hours Per Day (ICD-10-PCS; 2021-10-04)
PROC: 06HY33Z Insertion of Infusion Device into Lower Vein, Percutaneous Approach (ICD-10-PCS; 2021-10-04)
PROC: 6A550Z2 Pheresis of Platelets, Single (ICD-10-PCS; 2021-10-06)
PROC: 0DH67UZ Insertion of Feeding Device into Stomach, Via Natural or Artificial Opening (ICD-10-PCS; 2021-10-08)
DX: A41.51 Sepsis due to Escherichia coli [E. coli] (principal); R65.21 Severe sepsis with septic shock; G93.41 Metabolic encephalopathy; J18.9 Pneumonia, unspecified organism; J80 Acute respiratory distress syndrome; K72.00 Acute and subacute hepatic failure without coma; N18.6 End stage renal disease; K76.7 Hepatorenal syndrome; I21.A1 Myocardial infarction type 2; N17.9 Acute kidney failure, unspecified; D68.4 Acquired coagulation factor deficiency; E87.1 Hypo-osmolality and hyponatremia; N39.0 Urinary tract infection, site not specified; J90 Pleural effusion, not elsewhere classified; I12.0 Hypertensive chronic kidney disease with stage 5 chronic kidney disease or end stage renal disease; M79.A3 Nontraumatic compartment syndrome of abdomen; Z66 Do not resuscitate; Z51.5 Encounter for palliative care; Z20.822 Contact with and (suspected) exposure to COVID-19; F10.20 Alcohol dependence, uncomplicated; K21.9 Gastro-esophageal reflux disease without esophagitis; E16.2 Hypoglycemia, unspecified; R77.8 Other specified abnormalities of plasma proteins; K70.31 Alcoholic cirrhosis of liver with ascites; D69.59 Other secondary thrombocytopenia; E87.70 Fluid overload, unspecified; E83.51 Hypocalcemia; E66.9 Obesity, unspecified; I34.0 Nonrheumatic mitral (valve) insufficiency; R60.1 Generalized edema; E87.5 Hyperkalemia; K70.11 Alcoholic hepatitis with ascites; K72.10 Chronic hepatic failure without coma; E87.6 Hypokalemia; R19.7 Diarrhea, unspecified; Z99.2 Dependence on renal dialysis; Z78.1 Physical restraint status; Z68.33 Body mass index [BMI] 33.0-33.9, adult
CPT/HCPCS: 36415; 36416; 36430; 36600; 71045; 76705; 80048; 80053; 80074; 80202; 80306; 81001; 82105; 82140; 82390; 82533; 82550; 82553; 82607; 82728; 82746; 82805; 83516; 83605; 83735; 83930; 84100; 84145; 85025; 85060; 85384; 85610; 85730; 86015; 86038; 86225; 86780; 86850; 86900; 86901; 87040; 87070; 87081; 87086; 87205; 87389; 87517; 89220; 90935; 93005; 93306; 94002; 94003; 94660; 96361; 96374; C9113; G0257; J0696; J1630; J1642; J1644; J1720; J2060; J2185; J2270; J2354; J2704; J2765; J3370; J3411; J3430; J3480; J3490; J7042; J7050; J7070; J7620; J7999; P9035; P9047; P9059; S0028

== ENCOUNTER 2021-10-12 16:26 | Inpatient (IN) | payer OTHER ==
[2021-10-12] MEDS ORDERED: Scopolamine 1.5 mg/72 hour Patch TOP PRN (17:00)
[2021-10-12] MEDS ORDERED: Haloperidol Lactate 5 MG/ML VIAL SLOW IVP PRN (17:00)
[2021-10-12] MEDS ORDERED: Ondansetron ODT 4 MG TAB PO PRN (17:00)
[2021-10-12] MEDS ORDERED: Ondansetron PF 4 MG/2 ML Vial IVP PRN (17:00)
[2021-10-12] MEDS ORDERED: Acetaminophen 650 MG Suppository PR PRN (17:00)
[2021-10-12] MEDS: Morphine 4 MG/ML VIAL SLOW IVP PRN ×3 (17:10→20:37)
[2021-10-12] MEDS: Lorazepam 2 MG/ML VIAL SLOW IVP PRN ×2 (17:17→18:26)
[2021-10-12] MEDS: Atropine Sulfate 1% Ophth Soln 5 ml Bottle PO PRN ×2 (17:22→18:29)
[2021-10-12 17:39] VITALS: BMI 31.6
[2021-10-12] MEDS ORDERED: Promethazine HCl 25 MG SUPP PR PRN (19:11)
[2021-10-13] MEDS: Lorazepam 2 MG/ML VIAL SLOW IVP PRN ×2 (08:09→21:09)
[2021-10-14] MEDS: Lorazepam 2 MG/ML VIAL SLOW IVP PRN ×2 (15:03→18:30)
[2021-10-14] MEDS: Morphine 4 MG/ML VIAL SLOW IVP PRN (23:18)
[2021-10-15] MEDS: Morphine 4 MG/ML VIAL SLOW IVP PRN ×9 (00:24→21:06)
[2021-10-15] MEDS: Lorazepam 2 MG/ML VIAL SLOW IVP PRN ×3 (10:34→21:07)
[2021-10-15] MEDS ORDERED: Scopolamine 1.5 mg/72 hour Patch TOP PRN (15:00)
[2021-10-16] MEDS: Lorazepam 2 MG/ML VIAL SLOW IVP PRN ×3 (06:04→23:47)
[2021-10-16] MEDS: Morphine 4 MG/ML VIAL SLOW IVP PRN ×4 (06:04→23:47)
[2021-10-17] MEDS: Morphine 4 MG/ML VIAL SLOW IVP PRN (06:01)
[2021-10-17] MEDS: Lorazepam 2 MG/ML VIAL SLOW IVP PRN (06:01)
[2021-10-17 08:36] VITALS: BP 104/54; TEMP 99.1
== END 2021-10-17 09:00 | disposition expired | DRG 951 ==
LOC: CCU 16:26 → T4-B 18:56
PROVIDERS: ADMIT Family Medicine; ATTEND Family Medicine
DX: Z51.5 Encounter for palliative care (principal); Z66 Do not resuscitate; A41.9 Sepsis, unspecified organism; J18.9 Pneumonia, unspecified organism; N39.0 Urinary tract infection, site not specified; K70.30 Alcoholic cirrhosis of liver without ascites; N19 Unspecified kidney failure
CPT/HCPCS: J1630; J2060; J2270